=== PATIENT | female | born 1950 ===

== ENCOUNTER 2016-07-07 11:26 | Day surgery (SDC) | payer MEDICAID ==
[2016-07-07] MEDS ORDERED: LIDOCAINE 2% MDV (20MG/ML) 20ML VIAL IV ONE (14:00)
[2016-07-07] MEDS ORDERED: MIDAZOLAM HCL 2MG/2ML VIAL IV ONE (14:00)
[2016-07-07] MEDS ORDERED: ONDANSETRON HCL IV 4 MG/2 ML VIAL IVP ONE (14:00)
[2016-07-07] MEDS ORDERED: PROPOFOL 10 MG/ML VIAL IV ONE (14:00)
--- NOTE | 2016-07-11 15:05 | Operative Note ---
DATE OF SURGERY: 07/07/2016 SURGEON: Ander Monterroso MD OPERATION: COLONOSCOPY. INDICATIONS: This is a 65-year-old female with average risk for colorectal cancer who presented for screening colonoscopy. POSTOPERATIVE DIAGNOSIS: Normal colon. ANESTHESIA: Sedation is per Anesthesia. Pulse oximetry was monitored throughout the procedure to maintain O2 saturation of 90% or greater. Supplemental oxygen was administered via nasal cannula. Cardiac and vital signs were monitored throughout the duration of the procedure, and they were stable. The procedure of colonoscopy and risks and alternatives of the procedure, including the risk of bleeding and perforation, among others, were explained to the patient who voiced understanding and agreed to have the procedure done. Physical examination was performed, and the patient was found stable for sedation. PROCEDURE: The patient was placed in the left lateral position. Sedation was initiated. A digital rectal exam was performed and showed some mild external hemorrhoids with no palpable rectal masses. An Olympus PCF-180AL colonoscope was then inserted into the rectum under direct visualization. It was advanced to the cecum without difficulty. The ileocecal valve and appendiceal orifice were identified and photographed. The colonic mucosa was carefully examined upon introduction of the colonoscope. There were no lesions noted. The bowel preparation was suboptimal but enough to rule out any significant lesions. The colonoscope was then withdrawn while carefully examining the colonic mucosal surfaces. No lesions were noted. With copious irrigation, the colon was completely cleared. In the rectum, retroflexion was performed and grade 1 internal hemorrhoids were noted. The colonoscope was then withdrawn and the procedure was terminated. The patient tolerated the procedure well without any immediate complications. She remained with stable vital signs and was transferred to the recovery room. RECOMMENDATIONS: 1. The patient should be on a high-fiber diet. 2. The patient is to have a repeat colonoscopy for screening in 10 years. Thank you for allowing me to participate in the care of your patient. Ander Monterroso MD CC: Ameena JONES
== END 2016-07-07 14:15 | disposition home or self-care (01) ==
LOC: HOP 11:26
PROVIDERS: ATTEND Internal Medicine Gastroenterology
DX: Z12.11 Encounter for screening for malignant neoplasm of colon (principal)
CPT/HCPCS: 00810; G0121; J2405

== ENCOUNTER 2017-05-19 14:07 | Emergency (ER) | payer MEDICARE, MEDICAID ==
--- NOTE | 2017-05-19 14:34 | Emergency Department Record ---
History of Present Illness - General Chief Complaint: Cough Stated Complaint: PRODUCTIVE COUGH, NO ENERGY Time Seen by Provider: 05/19/17 14:18 Source: Patient Mode of Arrival: Ambulatory Limitations: No limitations - History of Present Illness Initial Comments: The patient is here due to a cough, intermittent fever and nasal congestion for a week. She was seen in the [facility] 4 days ago and had a neg Flu swab and neg CXR. The patient did take 5 days of Zithromax but is now no better and actually feels worse. She denies any Cp, back pain, or headache but feels her cough is worse. MD Complaint: Cough, Fever, Nasal congestion Onset/Timin -: Week(s) Consistency: Constant - Related Data Previous Rx's Medication Instructions Recorded Albuterol Sulfate [Proair Hfa] 2 puff IH QID PRN #1 inhaler 05/19/17 Doxycycline Monohydrate [Mondoxyne 100 mg PO BID #20 capsule 05/19/17 Nl] Prednisone [Prednisone 20Mg] 40 mg PO DAILY #10 tab 05/19/17 Allergies Allergy/AdvReac Type Severity Reaction Status Date / Time amoxicillin Allergy Intermediate hives Unverified 05/15/17 17:14 ampicillin Allergy Intermediate hives Unverified 05/15/17 17:14 Sulfa (Sulfonamide Allergy Intermediate hives Unverified 05/15/17 17:14 Antibiotics) Travel Screening - Travel/Exposure Within Last 30 Days Have you traveled within the last 30 days?: No Review of Systems Constitutional: Reports: Malaise. Denies: Chills, Fever Eyes: Denies: Eye discharge ENT: Reports: Congestion Respiratory: Reports: Cough, Dyspnea Past Medical History - SOCIAL HISTORY Smoking Status: Never smoker Alcohol Use: None Drug Use: None - RESPIRATORY Hx Respiratory Disorders: Yes Hx Bronchitis: Yes Comment:: chronic sinusitis - CARDIOVASCULAR Hx Cardio Disorders: Yes Hx Irregular Heartbeat: Yes - NEURO Hx Neuro Disorders: Yes Hx Dizziness: Yes Hx Headaches: Yes (sinus related) - GI Hx GI Disorders: Yes Hx Reflux: Yes Hx Ulcer: Yes - Hx Genitourinary Disorders: No - ENDOCRINE Hx Endocrine Disorders: No - MUSCULOSKELETAL Hx Musculoskeletal Disorders: No - PSYCH Hx Psych Problems: No - HEMATOLOGY/ONCOLOGY Hx Hematology/Oncology Disorders: Yes Hx Anemia: Yes ( related) Family Medical History Any Significant Family History?: Yes Hx Heart Disease: Mother Hx Resp Disorders: Mother *Resp Comment: PF Physical Exam - General General Appearance: Alert, Oriented x3, Cooperative, No acute distress - Head Head exam: Atraumatic, Normocephalic, Normal inspection - Eye Eye exam: Normal appearance, PERRL - ENT ENT exam: Normal exam, Mucous membranes moist, Normal external ear exam, Normal orophraynx, TM's normal bilaterally Throat exam: Normal inspection. negative: Tonsillar erythema, Tonsillar exudate - Neck Neck exam: Normal inspection, Full ROM. negative: Tenderness - Respiratory Respiratory exam: Normal lung sounds bilaterally. negative: Respiratory distress - Cardiovascular Cardiovascular Exam: Regular rate, Normal rhythm, Normal heart sounds - GI/Abdominal GI/Abdominal exam: Soft, Normal bowel sounds. negative: Tenderness - Extremities Extremities exam: Normal inspection, Full ROM, Normal capillary refill. negative: Tenderness Course Vital Signs 05/19/17 14:09 Temperature 98.2 F Pulse Rate 99 H Respiratory 18 Rate Blood Pressure 131/85 Pulse Ox 95 - Reevaluation(s) Reevaluation #1: The patient is doing better after the breathing tx. She denies any pain or discomfort. I did discuss the neg Flu test and neg CXR with her and the need for F/u. 05/19/17 15:11 Medical Decision Making - Data Complexity MDM Data: Labs Ordered and/or Reviewed (Flu: Neg.), X-Ray Ordered and/or Reviewed - Radiology Data Radiology results: Report reviewed (CXR: Neg.) Disposition Disposition: Discharge Clinical Impression: Upper respiratory infection Qualifiers: URI type: unspecified URI Qualified Code(s): J06.9 - Acute upper respiratory infection, unspecified Disposition: Home, Self-Care Condition: (2) Stable Instructions: Upper Respiratory Infection (ED) Additional Instructions: Please take the Doxycycline with the Albuterol and Prednisone. Please see your PCP next week if not better in 2-3 days. Return to the ER for any worsening symptoms of trouble breathing, wheezing or any fever. Prescriptions: Albuterol Sulfate [Proair Hfa] 2 puff IH QID PRN #1 inhaler PRN Reason: Cough And Difficulty Breathing Doxycycline Monohydrate [Mondoxyne Nl] 100 mg PO BID #20 capsule Prednisone [Prednisone 20Mg] 40 mg PO DAILY #10 tab Forms: Patient Portal Access Time of Disposition: 15:14 Quality - Quality Measures Quality Measures: N/A - Blood Pressure Screening View Details: Yes Does Patient Have Any of the Following: No Blood Pressure Classification: Pre-Hypertensive BP Reading Systolic Measurement: 131 Diastolic Measurement: 85 Screening for High Blood Pressure: < Pre-Hypertensive BP, F/U Documented > [ G8950] Pre-Hypertensive Follow-up Interventions: Referral to alternative/primary care provider.
[2017-05-19 14:48] LABS: INFLUENZA A NEGATIVE (NEGATIVE); INFLUENZA B NEGATIVE (NEGATIVE)
[2017-05-19] MEDS ORDERED: IPRATROPIUM/ALBUTEROL (0.5MG/3MG) NEB INH ONE (14:52)
--- NOTE | 2017-05-20 19:32 | RADIOLOGY REPORT ---
EXAM: CHEST 2 VIEWS HISTORY: DIAGNOSED WITH BRONCHITIS ONE WEEK AGO. PRODUCTIVE COUGH FOR ONE WEEK. TECHNIQUE: Upright PA and lateral views of the chest. COMPARISON: Two views of the chest dated 05/15/2017. FINDINGS: The cardiomediastinal silhouette remains normal in size and configuration. The pulmonary vasculature is nondilated. The lungs and pleural spaces are clear. There are mild degenerative changes again noted scattered throughout the visualized spine. IMPRESSION: NO RADIOGRAPHIC EVIDENCE OF ACUTE CARDIOPULMONARY DISEASE, UNCHANGED SINCE 05/15. JOB NUMBER: [id number] MTDD
== END 2017-05-19 15:25 | disposition home or self-care (01) ==
LOC: ER 14:07
DX: J06.9 Acute upper respiratory infection, unspecified (principal); R05 Cough; R53.83 Other fatigue
CPT/HCPCS: 71046; 87400; 94640; 99283; 99284

== ENCOUNTER 2017-06-11 16:32 | Emergency (ER) | payer MEDICARE, MEDICAID ==
--- NOTE | 2017-06-11 17:10 | Emergency Department Record ---
History of Present Illness - General Chief Complaint: Hypertension Stated Complaint: HIGH BLOOD PRESSURE Time Seen by Provider: 06/11/17 16:54 Source: Patient, Family Mode of Arrival: Ambulatory Limitations: No limitations - History of Present Illness Initial Comments: 66 yo female presents with a concern about several elevated blood pressure readings today. She felt anxious so she took her BP. On several readings the BP was in the 160 and 170's systolic and 90's diastolic. No chest pain. She felt more anxious. No history of HTN. No dyspnea. No swelling. No back pain. No vision changes. No other acute changes in her health. The patient has a history of prior rheumatic fever a young person with known murmur per her. She has not had an echo or seen a voltage inspector in many years. MD Complaint: Other (elevated blood pressure) -: Hour(s) Timing: Gradual onset Description: Other History of Same: No History of Trauma: No Improves With: Nothing Worsens With: Nothing Associated Symptoms: Denies other symptoms - [place] Coma Scale Eye Response: (4) Open spontaneously Motor Response: (6) Obeys commands Verbal Response: (5) Oriented Rob Total: 15 - Related Data Allergies Allergy/AdvReac Type Severity Reaction Status Date / Time amoxicillin Allergy Intermediate hives Verified 06/11/17 17:00 ampicillin Allergy Intermediate hives Verified 06/11/17 17:00 Sulfa (Sulfonamide Allergy Intermediate hives Verified 06/11/17 17:00 Antibiotics) Travel Screening - Travel/Exposure Within Last 30 Days Have you traveled within the last 30 days?: No Review of Systems Constitutional: Denies: Chills, Fever, Malaise, Weakness Eyes: Denies: Eye discharge ENT: Denies: Congestion, Throat pain Respiratory: Denies: Cough, Dyspnea, Hemoptysis, Stridor, Wheezes Cardiovascular: Denies: Chest pain, Palpitations, Syncope Endocrine: Denies: Fatigue Gastrointestinal: Denies: Abdominal pain, Diarrhea, Nausea, Vomiting Genitourinary: Denies: Dysuria, Urgency Musculoskeletal: Denies: Arthralgia, Back pain, Joint swelling, Myalgia Skin: Denies: Bruising, Change in color, Rash Neurological: Denies: Abnormal gait, Confusion, Headache, Numbness, Paresthesias , Seizure, Tingling, Tremors, Vertigo, Weakness Psychiatric: Reports: Anxiety Hematological/Lymphatic: Denies: Blood Clots, Easy bleeding, Easy bruising, Swollen glands Past Medical History - SOCIAL HISTORY Smoking Status: Never smoker Alcohol Use: None Drug Use: None - RESPIRATORY Hx Respiratory Disorders: Yes Hx Bronchitis: Yes Hx Pneumonia: Yes Comment:: chronic sinusitis - CARDIOVASCULAR Hx Cardio Disorders: Yes Hx Irregular Heartbeat: Yes (murmur) - NEURO Hx Neuro Disorders: Yes Hx Dizziness: Yes Hx Headaches: Yes (sinus related) - GI Hx GI Disorders: Yes Hx Reflux: Yes Hx Ulcer: Yes - Hx Genitourinary Disorders: No - ENDOCRINE Hx Endocrine Disorders: No - MUSCULOSKELETAL Hx Musculoskeletal Disorders: No - PSYCH Hx Psych Problems: No - HEMATOLOGY/ONCOLOGY Hx Hematology/Oncology Disorders: Yes Hx Anemia: Yes Family Medical History Any Significant Family History?: Yes Hx Heart Disease: Mother Hx Resp Disorders: Mother *Resp Comment: PF Physical Exam - General General Appearance: Alert, Oriented x3, Cooperative, No acute distress Limitations: No limitations - Head Head exam: Normal inspection - Eye Eye exam: Normal appearance, PERRL. negative: Conjunctival injection, Periorbital swelling, Scleral icterus - ENT ENT exam: Normal exam, Mucous membranes moist, Normal orophraynx Ear exam: Normal external inspection Nasal Exam: Normal inspection. negative: Discharge, Sinus tenderness Mouth exam: Normal external inspection, Tongue normal Teeth exam: Normal inspection. negative: Dental caries - Neck Neck exam: Normal inspection, Full ROM. negative: Lymphadenopathy, Tenderness, Thyromegaly - Respiratory Respiratory exam: Normal lung sounds bilaterally. negative: Accessory muscle use, Chest wall tenderness, Decreased breath sounds, Respiratory distress, Rhonchi, Stridor, Wheezes - Cardiovascular Cardiovascular Exam: Regular rate, Normal rhythm, Normal heart sounds, Systolic murmur (very soft best over aortic, mild) Peripheral Pulses: 2+: Radial (R), Radial (L) - GI/Abdominal GI/Abdominal exam: Soft. negative: Tenderness - Rectal Rectal exam: Deferred - exam: Deferred - Extremities Extremities exam: Normal inspection, Full ROM, Normal capillary refill. negative: Pedal edema, Tenderness - Back Back exam: Reports: Normal inspection, Full ROM. Denies: CVA tenderness (R), CVA tenderness (L), Muscle spasm, Paraspinal tenderness, Rash noted, Tenderness , Vertebral tenderness - Neurological Neurological exam: Alert, Normal gait, Oriented X3 - Psychiatric Psychiatric exam: Normal affect, Normal mood - Skin Skin exam: Dry, Intact, Normal color, Warm Course Vital Signs 06/11/17 16:57 Temperature 98.0 F Pulse Rate 87 Respiratory 16 Rate Blood Pressure 143/84 Pulse Ox 99 - Reevaluation(s) Reevaluation #1: EKG NSR rate is 73, intervals normal, axis leftward, ST no acute changes, Possible LVH. 06/11/17 17:41 The labs were reviewed No acute changes on the CBC or CMP 06/11/17 17:43 I discussed the results with the patient I recommend referral to a voltage inspector given her past known history of murmur and prior rheumatic fever. Her BP has spontaneously come done. No need for acute BP medications. 06/11/17 18:19 TSH is 1.4 Medical Decision Making - Lab Data Result diagrams: 06/11/17 17:10 06/11/17 17:10 Disposition Disposition: Discharge Clinical Impression: Elevated blood pressure reading Disposition: Home, Self-Care Condition: (1) Good Instructions: Hypertension (ED) Additional Instructions: Return to the ER if worse, short of breath, chest pain or any new concerns Call your doctor for close follow up of this ER visit You have been referred the to the cardiology clinic at [facility] for your history of rheumatic fever, murmur and elevated blood pressure Referrals: KALYN PUENTE M.D. [MEDICAL DOCTOR] - [facility] [Provider Group] Forms: Patient Portal Access Time of Disposition: 17:48 Quality - Quality Measures Quality Measures: N/A - Blood Pressure Screening Does Patient Have Any of the Following: No Blood Pressure Classification: Pre-Hypertensive BP Reading Systolic Measurement: 143 Diastolic Measurement: 84 Screening for High Blood Pressure: < Pre-Hypertensive BP, F/U Documented > [ G8950] Pre-Hypertensive Follow-up Interventions: Referral to alternative/primary care provider.
[2017-06-11 17:22] LABS: BASO % 0.3 % (0-6); EOS % 1.3 % (0-6); GRAN % 74.3 % (47-80); HEMATOCRIT 36.9 % (35.0-47.0); HEMOGLOBIN 12.2 gm/dl (11.6-16.0); LYMPH % 17.9 % (16-45); MEAN CELL VOLUME 96.9 fl (81-97); MEAN CORPUSCULAR HGB CONC 33.1 g/dl (32-36); MEAN PLATELET VOLUME 9.2 fl (7.4-10.4); MONO % 6.2 % (0-9); PLATELET COUNT 279 K/uL (130-400); RED BLOOD COUNT 3.81 M/uL (3.80-5.40); RED CELL DISTRIBUTION WIDTH 12.5 % (11.5-14.5); WHITE BLOOD COUNT W/O DIFF 9.5 K/uL (4.2-12.2)
[2017-06-11 17:31] LABS: BLOOD UREA NITROGEN 15 mg/dL (8-23); CREATININE 0.7 mg/dL (0.5-0.9); EST GLOMERULAR FILTRATION RATE > 60 mL/min
[2017-06-11 17:34] LABS: GLUCOSE,RANDOM 99 mg/dL (74-109)
[2017-06-11 17:47] LABS: THYROID STIMULATING HORMONE 1.41 uIU/mL (0.270-4.20)
== END 2017-06-11 18:36 | disposition home or self-care (01) ==
LOC: ER 16:32
DX: R03.0 Elevated blood-pressure reading, without diagnosis of hypertension (principal)
CPT/HCPCS: 80048; 84443; 85025; 93005; 93010; 99284